=== PATIENT | male | born 1940 | race Caucasian/White ===

== ENCOUNTER 2019-05-02 10:06 | Inpatient (IN) | payer MEDICARE, OTHER ==
--- NOTE | 2019-05-02 10:41 | EDM.PDOC ---
ED HPI GENERAL MEDICAL PROBLEM - General Chief Complaint: Respiratory Problem Stated Complaint: RESPIRATORY PROBLEMS Time Seen by Provider: 05/02/19 10:27 Source of Information: Reports: Patient History Limitations: Reports: No Limitations - History of Present Illness INITIAL COMMENTS - FREE TEXT/NARRATIVE: 78-year-old male with onset of shortness of breath, nasal congestion and worsening cough on Friday afternoon, 04/30/2019. He states that he felt bad all over and with the above symptoms when he came home from [place] Friday afternoon and his symptoms of shortness of breath, cough and malaise have worsened since then. He reports he gets short of breath with any activity and even today feels short of breath when he tries to talk. He feels weak and run down. He has no pain. Pain is 0/10. He has had a cough that has been productive of some phlegm but he states that it is difficult to get the phlegm up. He has had a subjective fever. He has nausea after cough but no vomiting. No diarrhea. No dysuria or hematuria. He has had nasal congestion associated with this but no sore throat. He has been able to take liquids well but has had a decreased appetite. There are no other associated signs or symptoms. There are no other modifying factors. Onset: Other (04/30/2019) Duration: Getting Worse Location: Reports: Other (. He has generalized malaise) Quality: Reports: Other (Nonapplicable. His breathing is his major complaint and that is moderate to severe) Severity: Moderate (to severe) Improves with: Reports: Rest Worsens with: Reports: Breathing, Other (Activity. 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) - Related Data Allergies Allergy/AdvReac Type Severity Reaction Status Date / Time No Known Allergies Allergy Verified 05/02/19 11:34 Home Meds: Home Meds Aspirin 325 mg PO DAILY 03/26/16 [History] Cholecalciferol (Vitamin D3) [Vitamin D3] 5,000 unit PO DAILY 03/26/16 [History] Omeprazole 40 mg PO QAM 03/26/16 [History] Past Medical History Respiratory History: Reports: Other (See Below) Other Respiratory History: PNEUMONIA IN THE "S Gastrointestinal History: Reports: Other (See Below) Other Gastrointestinal History: SX CHRONIC EPIGASTRIC ET ABDOMINAL PAIN - Infectious Disease History Infectious Disease History: Reports: Measles - Past Surgical History GI Surgical History: Reports: EGD Musculoskeletal Surgical History: Reports: Other (See Below) (Cyst removed from left lower leg/knee area) Social & Family History - Tobacco Use Smoking Status *Q: Current Every Day Smoker - Caffeine Use Caffeine Use: Reports: Coffee - Alcohol Use Alcohol Use History: Yes Alcohol Use Frequency: Weekly (States he drinks 1-2 beers every other Friday) - Living Situation & Occupation Occupation: Retired ED ROS GENERAL - Review of Systems Review Of Systems: See Below Constitutional: Reports: Fever (Subjective), Malaise, Fatigue, Decreased Appetite HEENT: Reports: Other (Nasal congestion) Respiratory: Reports: Shortness of Breath, Wheezing, Cough Cardiovascular: Reports: Dyspnea on Exertion Endocrine: Reports: No Symptoms GI/Abdominal: Reports: Nausea (After coughing). Denies: Vomiting : Reports: No Symptoms Musculoskeletal: Reports: No Symptoms Skin: Reports: No Symptoms Neurological: Reports: No Symptoms Psychiatric: Reports: No Symptoms Hematologic/Lymphatic: Reports: No Symptoms Immunologic: Reports: No Symptoms ED EXAM, GENERAL - Physical Exam Exam: See Below Exam Limited By: No Limitations General Appearance: Alert, WD/WN, Moderate Distress (But appears better on oxygen. He is able to speak in complete sentences and gives a great history.) Eye Exam: Bilateral Eye: EOMI, Normal Inspection, PERRL Ears: Normal External Exam Ear Exam: Bilateral Ear: Auricle Normal Nose: No Blood, Nasal Drainage Throat/Mouth: Normal Inspection, Normal Oropharynx, Normal Voice, No Airway Compromise Head: Atraumatic, Normocephalic Neck: Normal Inspection, Supple, Non-Tender, Full Range of Motion Respiratory/Chest: Respiratory Distress (Some increased work of breathing), Rales (Dazes and scattered), Rhonchi (Laterally bilaterally), Wheezing, Accessory Muscle Use, Prolonged Expiration Cardiovascular: Normal Peripheral Pulses, Regular Rate, Rhythm, No Edema, No Gallop, No JVD, No Murmur Peripheral Pulses: 2+: Radial (L), Radial (R), Dorsalis Pedis (L), Dorsalis Pedis (R) GI/Abdominal: Normal Bowel Sounds, Soft, Non-Tender, No Mass Back Exam: Normal Inspection Extremities: Normal Inspection, Normal Range of Motion, Non-Tender, No Pedal Edema, Normal Capillary Refill Neurological: Alert, Oriented, CN II-XII Intact, Normal Cognition Skin Exam: Warm, Dry, Intact, Normal Color, No Rash EKG INTERPRETATION EKG Date: 05/02/19 Time: 11:12 Rhythm: NSR Rate (Beats/Min): 83 [place]: Normal P-Wave: Present QRS: RBBB ST-T: Normal QT: Normal Comparison: No Change (No change from EKG performed on 03/27/2016.) Course - Orders/Labs/Meds Orders: Active Orders 24 hr Category Date Time Status Admission Status [Patient Status] [ADT] Routine ADT 05/02/19 11:57 Ordered Cardiac Monitoring [RC] .As Directed Care 05/02/19 11:57 Ordered EKG Documentation Completion [RC] ASDIRECTED Care 05/02/19 10:42 Active RT Aerosol Therapy [RC] ASDIRECTED Care 05/02/19 10:45 Active Chest 2V [CR] Stat Exams 05/02/19 10:41 Taken CULTURE BLOOD [BC] Urgent Lab 05/02/19 11:52 Ordered CULTURE BLOOD [BC] Urgent Lab 05/02/19 11:52 Ordered Azithromycin [Zithromax] 500 mg Med 05/02/19 11:56 Ordered Sodium Chloride 0.9% [Normal Saline (AdvBag)] 250 ml IV ONETIME Sodium Chloride 0.9% [Saline Flush] Med 05/02/19 10:41 Active 10 ml FLUSH ASDIRECTED PRN Blood Culture x2 Reflex Set [OM.PC] Urgent Oth 05/02/19 11:52 Ordered Peripheral IV Insertion Adult [OM.PC] Routine Oth 05/02/19 10:41 Ordered EKG 12 Lead [EK] Routine Ther 05/02/19 10:41 Ordered Medication Orders Azithromycin 500 mg/ Sodium (Chloride) 250 mls @ 250 mls/hr IV ONETIME ONE Stop: 05/02/19 12:55 Sodium Chloride (Saline Flush) 10 ml FLUSH ASDIRECTED PRN PRN Reason: Keep Vein Open Last Admin: 05/02/19 11:05 Dose: 10 ml Labs: Laboratory Tests 05/02/19 05/02/19 05/02/19 Range/Units 10:59 10:59 10:59 WBC 10.0 (4.5-12.0) X10-3/uL RBC 4.37 (4.30-5.75) x10(6)uL Hgb 14.5 (13.5-17.8) g/dL Hct 42.8 (30.0-51.3) % MCV 98.0 H (80-96) fL MCH 33.1 (27.7-33.6) pg MCHC 33.8 (32.2-35.4) g/dL RDW 12.3 (11.5-15.5) % Plt Count 169 (125-369) X10(3)uL MPV 7.6 (7.4-10.4) fL Neut % (Auto) 76.8 (46-82) % Lymph % (Auto) 10.9 L (13-37) % Stanley % (Auto) 12.2 H (4-12) % Eos % (Auto) 0 L (1.0-5.0) % Baso % (Auto) 0 (0-2) % Neut # (Auto) 7.7 (1.6-8.3) # Lymph # (Auto) 1.1 (0.6-5.0) # Stanley # (Auto) 1.2 (0.0-1.3) # Eos # (Auto) 0.0 (0.0-0.8) # Baso # (Auto) 0.0 (0.0-0.2) # PT (8.7-11.1) INR (0.89-1.13) POC VBG pH (7.31-7.41) POC VBG pCO2 (41-51) mmHG POC VBG HCO3 (23-28) mmol/L POC VBG Total CO2 (24-29) mmol/L POC VBG Base Excess (-2-3) mmol/L Sodium 132 L (135-145) mmol/L Potassium 4.2 (3.5-5.3) mmol/L Chloride 95 L (100-110) mmol/L Carbon Dioxide 29 (21-32) mmol/L BUN 10 (7-18) mg/dL Creatinine 0.7 (0.70-1.30) mg/dL Est Cr Clr Drug Dosing TNP Estimated GFR (MDRD) > 60 (>60) BUN/Creatinine Ratio 14.3 (9-20) Glucose 100 (80-116) mg/dL Calcium 8.0 L (8.6-10.2) mg/dL Magnesium 1.4 L (1.8-2.5) mg/dL Total Bilirubin 0.4 (0.1-1.3) mg/dL AST 20 (5-25) IU/L ALT 11 L (12-36) U/L Alkaline Phosphatase 92 (56-112) IU/L Troponin I 27.7 (4.0-60.3) pg/mL C-Reactive Protein 12.1 H* (0.5-0.9) mg/dL NT-Pro-B Natriuret Pep 3702 H* (<=450) pg/mL Total Protein 6.8 (6.0-8.0) g/dL Albumin 2.8 L (3.2-4.6) g/dL Globulin 4.0 g/dL Albumin/Globulin Ratio 0.7 05/02/19 05/02/19 Range/Units 10:59 11:27 WBC (4.5-12.0) X10-3/uL RBC (4.30-5.75) x10(6)uL Hgb (13.5-17.8) g/dL Hct (30.0-51.3) % MCV (80-96) fL MCH (27.7-33.6) pg MCHC (32.2-35.4) g/dL RDW (11.5-15.5) % Plt Count (125-369) X10(3)uL MPV (7.4-10.4) fL Neut % (Auto) (46-82) % Lymph % (Auto) (13-37) % Stanley % (Auto) (4-12) % Eos % (Auto) (1.0-5.0) % Baso % (Auto) (0-2) % Neut # (Auto) (1.6-8.3) # Lymph # (Auto) (0.6-5.0) # Stanley # (Auto) (0.0-1.3) # Eos # (Auto) (0.0-0.8) # Baso # (Auto) (0.0-0.2) # PT 10.7 (8.7-11.1) INR 1.10 (0.89-1.13) POC VBG pH 7.34 (7.31-7.41) POC VBG pCO2 62.2 H (41-51) mmHG POC VBG HCO3 33.2 H (23-28) mmol/L POC VBG Total CO2 35 H (24-29) mmol/L POC VBG Base Excess 7 H (-2-3) mmol/L Sodium (135-145) mmol/L Potassium (3.5-5.3) mmol/L Chloride (100-110) mmol/L Carbon Dioxide (21-32) mmol/L BUN (7-18) mg/dL Creatinine (0.70-1.30) mg/dL Est Cr Clr Drug Dosing Estimated GFR (MDRD) (>60) BUN/Creatinine Ratio (9-20) Glucose (80-116) mg/dL Calcium (8.6-10.2) mg/dL Magnesium (1.8-2.5) mg/dL Total Bilirubin (0.1-1.3) mg/dL AST (5-25) IU/L ALT (12-36) U/L Alkaline Phosphatase (56-112) IU/L Troponin I (4.0-60.3) pg/mL C-Reactive Protein (0.5-0.9) mg/dL NT-Pro-B Natriuret Pep (<=450) pg/mL Total Protein (6.0-8.0) g/dL Albumin (3.2-4.6) g/dL Globulin g/dL Albumin/Globulin Ratio Meds: Medications Generic Name Dose Route Start Last Admin Trade Name Freq PRN Reason Stop Dose Admin Azithromycin 500 mg/ Sodium 250 mls @ 250 mls/hr 05/02/19 11:56 Chloride IV 05/02/19 12:55 ONETIME ONE Sodium Chloride 10 ml 05/02/19 10:41 05/02/19 11:05 Saline Flush FLUSH 10 ml ASDIRECTED PRN Administration Keep Vein Open Discontinued Medications Generic Name Dose Route Start Last Admin Trade Name Freq PRN Reason Stop Dose Admin Albuterol 2.5 mg 05/02/19 10:44 05/02/19 11:06 Proventil Neb Soln NEB 05/02/19 10:45 2.5 mg ONETIME ONE Administration Albuterol/Ipratropium 3 ml 05/02/19 10:44 05/02/19 11:06 Duoneb 3.0-0.5 Mg/3 Ml NEB 05/02/19 10:45 3 ml ONETIME ONE Administration Ceftriaxone Sodium 2 gm 05/02/19 11:56 Rocephin IVPUSH 05/02/19 11:57 ONETIME ONE Methylprednisolone Sodium Succinate 125 mg 05/02/19 10:44 05/02/19 11:04 Solu-Medrol IVPUSH 05/02/19 10:45 125 mg ONETIME ONE Administration - Radiology Interpretation Free Text/Narrative:: Chest x-ray shows COPD with left lower lobe infiltrate. - Re-Assessments/Exams Free Text/Narrative Re-Assessment/Exam: 05/02/19 12:00: Patient remains awake, alert and appropriate. He is more comfortable on oxygen and after the neb he is still quite wheezy and requiring supplemental oxygen. His blood gas shows evidence of hypoxic and hypercapnic respiratory failure. His chest x-ray shows evidence of pneumonia and COPD. His proBNP was elevated but his x-ray does not appear to be decompensated CHF at this time. His CRP was elevated. His other blood tests are reassuringly normal including a negative troponin. His EKG was unchanged from previous. He has acute respiratory failure with hypoxia and hypercapnia and pneumonia. He will need admission with supplemental oxygen, nebulizer treatments, IV steroids, IV antibiotics and close monitoring. He will need at least a 2 midnight hospital stay to accomplish the plan of care. I discussed this with the patient previously and he is in agreement with the plan for admission. I discussed patient's case with Dr. Ramires and he has agreed to admit the patient. I did order blood cultures 2 sets and I ordered Rocephin 2 g IV and Zithromax 500 mg IV. Departure - Departure Time of Disposition: 12:15 Disposition: Admitted As Inpatient 65 Condition: Fair (Stable) Clinical Impression: Acute respiratory failure with hypoxia and hypercapnia Left lower lobe pneumonia Qualifiers: Pneumonia type: due to unspecified organism Qualified Code(s): J18.9 - Pneumonia, unspecified organism COPD (chronic obstructive pulmonary disease) Qualifiers: COPD type: unspecified COPD Qualified Code(s): J44.9 - Chronic obstructive pulmonary disease, unspecified - Discharge Information Referrals: Terrence Mason MD [Primary Care Provider] - Forms: ED Department Discharge Sepsis Event Note - Focused Exam Date Exam was Performed: 05/02/19 Time Exam was Performed: 11:59 - My Orders Last 24 Hours: My Active Orders 05/02/19 10:41 Chest 2V [CR] Stat Sodium Chloride 0.9% [Saline Flush] 10 ml FLUSH ASDIRECTED PRN Peripheral IV Insertion Adult [OM.PC] Routine EKG 12 Lead [EK] Routine 05/02/19 10:42 EKG Documentation Completion [RC] ASDIRECTED 05/02/19 10:45 RT Aerosol Therapy [RC] ASDIRECTED 05/02/19 11:52 CULTURE BLOOD [BC] Urgent CULTURE BLOOD [BC] Urgent Blood Culture x2 Reflex Set [OM.PC] Urgent 05/02/19 11:56 Azithromycin [Zithromax] 500 mg Sodium Chloride 0.9% [Normal Saline (AdvBag)] 250 ml IV ONETIME 05/02/19 11:57 Admission Status [Patient Status] [ADT] Routine Cardiac Monitoring [RC] .As Directed - Assessment/Plan Last 24 Hours: My Active Orders 05/02/19 10:41 Chest 2V [CR] Stat Sodium Chloride 0.9% [Saline Flush] 10 ml FLUSH ASDIRECTED PRN Peripheral IV Insertion Adult [OM.PC] Routine EKG 12 Lead [EK] Routine 05/02/19 10:42 EKG Documentation Completion [RC] ASDIRECTED 05/02/19 10:45 RT Aerosol Therapy [RC] ASDIRECTED 05/02/19 11:52 CULTURE BLOOD [BC] Urgent CULTURE BLOOD [BC] Urgent Blood Culture x2 Reflex Set [OM.PC] Urgent 05/02/19 11:56 Azithromycin [Zithromax] 500 mg Sodium Chloride 0.9% [Normal Saline (AdvBag)] 250 ml IV ONETIME 05/02/19 11:57 Admission Status [Patient Status] [ADT] Routine Cardiac Monitoring [RC] .As Directed
[2019-05-02] MEDS ORDERED: Albuterol 0.083% 2.5 MG/3 ML Neb Soln NEB ONE (10:44)
[2019-05-02] MEDS ORDERED: methylPREDNISolone Sodium Succinate 125 MG/2 ML SDV IVPUSH ONE (10:44)
[2019-05-02] MEDS ORDERED: Albuterol/Ipratropium 3.0-0.5 MG/3 ML Neb Soln NEB ONE (10:44)
[2019-05-02] MEDS: Sodium Chloride 0.9% 10 ML Syringe FLUSH PRN ×4 (11:05→20:24)
[2019-05-02] MEDS ORDERED: cefTRIAXone 2 GM Vial IVPUSH ONE (11:56)
[2019-05-02] MEDS ORDERED: Azithromycin 500 MG in Sodium Chloride 0.9% 250 ML IV ONE (11:56)
--- NOTE | 2019-05-02 17:26 | PCM.HP.2 ---
H&P History of Present Illness - General Date of Service: 05/02/19 Admit Problem/Dx: Admission Diagnosis/Problem Admission Diagnosis/Problem Respiratory failure with hypoxia and hypercapnia Source of Information: Patient, Old Records History Limitations: Reports: No Limitations - History of Present Illness Initial Comments - Free Text/Narative: Steve is a 78-year-old smoker came in with shortness of breath cough and wheezing since Friday. He was well previously with exception of an episode of fever and chills last week. He is generally not seen the physician and was last seen in the clinic for us dysphagia reflux disease in 2015. She had pneumonia in the . He denies chest pain DENIES ANY PAIN WHEN ASKED AT PRESENT TIME Pain Score (Numeric/FACES): 0 - Related Data Allergies/Adverse Reactions: Allergies Allergy/AdvReac Type Severity Reaction Status Date / Time No Known Allergies Allergy Verified 05/02/19 11:34 Home Medications: Home Meds Aspirin 325 mg PO DAILY 03/26/16 [History] Cholecalciferol (Vitamin D3) [Vitamin D3] 5,000 unit PO DAILY 03/26/16 [History] Omeprazole 40 mg PO QAM 03/26/16 [History] Past Medical History HEENT History: Reports: Impaired Vision Cardiovascular History: Reports: SOB on Exertion Respiratory History: Reports: SOB, Other (See Below) Other Respiratory History: PNEUMONIA IN THE Gastrointestinal History: Reports: Other (See Below) Other Gastrointestinal History: SX CHRONIC EPIGASTRIC ET ABDOMINAL PAIN Other Musculoskeletal History: CYST REMOVED FROM LEFT OUTER KNEE - Infectious Disease History Infectious Disease History: Reports: Chicken Pox, Measles, Shingles - Past Surgical History HEENT Surgical History: Reports: Oral Surgery Cardiovascular Surgical History: Reports: None Respiratory Surgical History: Reports: None GI Surgical History: Reports: EGD Musculoskeletal Surgical History: Reports: Other (See Below) Social & Family History - Family History Family Medical History: Noncontributory - Tobacco Use Smoking Status *Q: Current Every Day Smoker Years of Tobacco use: 50 Packs/Tins Daily: 1 Used Tobacco, but Quit: No Second Hand Smoke Exposure: Yes - Caffeine Use Caffeine Use: Reports: Coffee - Alcohol Use Days Per Week of Alcohol Use: 1 Number of Drinks Per Day: 2 Total Drinks Per Week: 2 - Recreational Drug Use Recreational Drug Use: No - Living Situation & Occupation Occupation: Retired H&P Review of Systems - Review of Systems: Review Of Systems: Comprehensive ROS is negative, except as noted in HPI. Exam - Exam Exam: See Below - Vital Signs Vital Signs: Last Vital Signs Temp 99.2 F 05/02/19 13:20 Pulse 87 05/02/19 13:20 Resp 24 H 05/02/19 13:20 BP 104/51 L 05/02/19 13:20 Pulse Ox 80 L 05/02/19 13:20 Weight: 60.101 kg - Exam Quality Assessment: Supplemental Oxygen General: Alert, Oriented, 4 HEENT: PERRLA, Hearing Intact, Mucosa Moist & [place], Nares Patent, Normal Nasal Septum, Posterior Pharynx Clear, Conjunctiva Clear, EOMI, EACs Clear, TMs Clear Neck: Supple, Trachea Midline, 2 Lungs: Decreased Breath Sounds, Wheezing Cardiovascular: Regular Rate, Regular Rhythm GI/Abdominal Exam: Normal Bowel Sounds, Soft, Non-Tender, No Organomegaly, No Distention, No Abnormal Bruit, No Mass, Pelvis Stable (Male) Exam: Deferred Rectal (Males) Exam: Deferred Back Exam: Normal Inspection, Full Range of Motion, NT Extremities: Normal Inspection, Normal Range of Motion, Non-Tender, No Pedal Edema, Normal Capillary Refill Skin: Warm, Dry, Intact Neurological: Cranial Nerves Intact, Reflexes Equal Bilateral Neuro Extensive - Mental Status: Alert, Oriented x3, Normal Mood/Affect, Normal Cognition Neuro Extensive - Motor, Sensory, Reflexes: CN II-XII Intact, Normal Gait, Normal Reflexes Psychiatric: Alert, Normal Affect, Normal Mood - Patient Data Lab Results Last 24 hrs: Laboratory Results - last 24 hr 05/02/19 05/02/19 05/02/19 Range/Units 10:59 10:59 10:59 WBC 10.0 (4.5-12.0) X10-3/uL RBC 4.37 (4.30-5.75) x10(6)uL Hgb 14.5 (13.5-17.8) g/dL Hct 42.8 (30.0-51.3) % MCV 98.0 H (80-96) fL MCH 33.1 (27.7-33.6) pg MCHC 33.8 (32.2-35.4) g/dL RDW 12.3 (11.5-15.5) % Plt Count 169 (125-369) X10(3)uL MPV 7.6 (7.4-10.4) fL Neut % (Auto) 76.8 (46-82) % Lymph % (Auto) 10.9 L (13-37) % Lewis % (Auto) 12.2 H (4-12) % Eos % (Auto) 0 L (1.0-5.0) % Baso % (Auto) 0 (0-2) % Neut # (Auto) 7.7 (1.6-8.3) # Lymph # (Auto) 1.1 (0.6-5.0) # Lewis # (Auto) 1.2 (0.0-1.3) # Eos # (Auto) 0.0 (0.0-0.8) # Baso # (Auto) 0.0 (0.0-0.2) # PT (8.7-11.1) INR (0.89-1.13) POC VBG pH (7.31-7.41) POC VBG pCO2 (41-51) mmHG POC VBG HCO3 (23-28) mmol/L POC VBG Total CO2 (24-29) mmol/L POC VBG Base Excess (-2-3) mmol/L Sodium 132 L (135-145) mmol/L Potassium 4.2 (3.5-5.3) mmol/L Chloride 95 L (100-110) mmol/L Carbon Dioxide 29 (21-32) mmol/L BUN 10 (7-18) mg/dL Creatinine 0.7 (0.70-1.30) mg/dL Est Cr Clr Drug Dosing TNP Estimated GFR (MDRD) > 60 (>60) BUN/Creatinine Ratio 14.3 (9-20) Glucose 100 (80-116) mg/dL Calcium 8.0 L (8.6-10.2) mg/dL Magnesium 1.4 L (1.8-2.5) mg/dL Total Bilirubin 0.4 (0.1-1.3) mg/dL AST 20 (5-25) IU/L ALT 11 L (12-36) U/L Alkaline Phosphatase 92 (56-112) IU/L Troponin I 27.7 (4.0-60.3) pg/mL C-Reactive Protein 12.1 H* (0.5-0.9) mg/dL NT-Pro-B Natriuret Pep 3702 H* (<=450) pg/mL Total Protein 6.8 (6.0-8.0) g/dL Albumin 2.8 L (3.2-4.6) g/dL Globulin 4.0 g/dL Albumin/Globulin Ratio 0.7 05/02/19 05/02/19 Range/Units 10:59 11:27 WBC (4.5-12.0) X10-3/uL RBC (4.30-5.75) x10(6)uL Hgb (13.5-17.8) g/dL Hct (30.0-51.3) % MCV (80-96) fL MCH (27.7-33.6) pg MCHC (32.2-35.4) g/dL RDW (11.5-15.5) % Plt Count (125-369) X10(3)uL MPV (7.4-10.4) fL Neut % (Auto) (46-82) % Lymph % (Auto) (13-37) % Lewis % (Auto) (4-12) % Eos % (Auto) (1.0-5.0) % Baso % (Auto) (0-2) % Neut # (Auto) (1.6-8.3) # Lymph # (Auto) (0.6-5.0) # Lewis # (Auto) (0.0-1.3) # Eos # (Auto) (0.0-0.8) # Baso # (Auto) (0.0-0.2) # PT 10.7 (8.7-11.1) INR 1.10 (0.89-1.13) POC VBG pH 7.34 (7.31-7.41) POC VBG pCO2 62.2 H (41-51) mmHG POC VBG HCO3 33.2 H (23-28) mmol/L POC VBG Total CO2 35 H (24-29) mmol/L POC VBG Base Excess 7 H (-2-3) mmol/L Sodium (135-145) mmol/L Potassium (3.5-5.3) mmol/L Chloride (100-110) mmol/L Carbon Dioxide (21-32) mmol/L BUN (7-18) mg/dL Creatinine (0.70-1.30) mg/dL Est Cr Clr Drug Dosing Estimated GFR (MDRD) (>60) BUN/Creatinine Ratio (9-20) Glucose (80-116) mg/dL Calcium (8.6-10.2) mg/dL Magnesium (1.8-2.5) mg/dL Total Bilirubin (0.1-1.3) mg/dL AST (5-25) IU/L ALT (12-36) U/L Alkaline Phosphatase (56-112) IU/L Troponin I (4.0-60.3) pg/mL C-Reactive Protein (0.5-0.9) mg/dL NT-Pro-B Natriuret Pep (<=450) pg/mL Total Protein (6.0-8.0) g/dL Albumin (3.2-4.6) g/dL Globulin g/dL Albumin/Globulin Ratio Result Diagrams: 05/02/19 10:59 05/02/19 10:59 Dhruv Results Last 24 hrs: Microbiology 05/02/19 11:00 Influenza Type A Antigen Screen - Final Nasopharyngeal Swab NEGATIVE INFLUENZA A VIRUS AG REFERENCE RANGE: NEGATIVE Influenza Type B Antigen Screen - Final NEGATIVE INFLUENZA B VIRUS AG REFERENCE RANGE: NEGATIVE Sepsis Event Note - Evaluation Sepsis Screening Result: No Definite Risk - Focused Exam Vital Signs: Vital Signs Temp Pulse Resp BP Pulse Ox 05/02/19 13:20 99.2 F 87 24 H 104/51 L 80 L Date Exam was Performed: 05/02/19 Time Exam was Performed: 17:24 - Problem List (1) COPD (chronic obstructive pulmonary disease) SNOMED Code(s): 16065343 ICD Code: J44.9 - CHRONIC OBSTRUCTIVE PULMONARY DISEASE, UNSPECIFIED Status : Acute Current Visit: Yes Qualifiers: COPD type: unspecified COPD Qualified Code(s): J44.9 - Chronic obstructive pulmonary disease, unspecified (2) Left lower lobe pneumonia SNOMED Code(s): 282393990 ICD Code: J18.9 - PNEUMONIA, UNSPECIFIED ORGANISM Status: Acute Current Visit: Yes Qualifiers: Pneumonia type: due to unspecified organism Qualified Code(s): J18.9 - Pneumonia, unspecified organism (3) Gastroduodenitis SNOMED Code(s): 480079884 ICD Code: K29.90 - GASTRODUODENITIS, UNSPECIFIED, WITHOUT BLEEDING Status: Acute Current Visit: No (4) Tobacco abuse SNOMED Code(s): 440654444 ICD Code: Z72.0 - TOBACCO USE Status: Acute Current Visit: Yes Problem List Initiated/Reviewed/Updated: Yes Orders Last 24hrs: Active Orders 24 hr Category Date Time Status Admission Status [Patient Status] [ADT] Routine ADT 05/02/19 11:57 Active Cardiac Monitoring [RC] 08,16,00 Care 05/02/19 11:57 Active RT Aerosol Therapy [RC] ASDIRECTED Care 05/02/19 10:45 Active Regular Diet [DIET] Diet 05/02/19 Lunch Active Chest 2V [CR] Stat Exams 05/02/19 10:41 Taken BASIC METABOLIC PANEL,BMP [CHEM] AM Lab 05/03/19 05:11 Ordered CBC WITH AUTO DIFF [HEME] AM Lab 05/03/19 05:11 Ordered CULTURE BLOOD [BC] Urgent Lab 05/02/19 13:17 Received CULTURE BLOOD [BC] Urgent Lab 05/02/19 13:22 Received Levofloxacin/Dextrose 5%-Water [Levaquin in D5W 500 MG/ Med 05/02/19 17:30 Ordered 100 ML] 500 mg Premix Bag 1 bag IV Q24H Sodium Chloride 0.9% [Saline Flush] Med 05/02/19 10:41 Active 10 ml FLUSH ASDIRECTED PRN methylPREDNISolone Sod Succ [Solu-MEDROL] Med 05/02/19 17:30 Ordered 125 mg IVPUSH Q8H Blood Culture x2 Reflex Set [OM.PC] Urgent Oth 05/02/19 11:52 Ordered Peripheral IV Insertion Adult [OM.PC] Routine Oth 05/02/19 10:41 Ordered EKG 12 Lead [EK] Routine Ther 05/02/19 10:41 Ordered Medication Orders Levofloxacin/Dextrose 500 mg/ (Premix) 100 mls @ 100 mls/hr IV Q24H BERNABE Methylprednisolone Sodium Succinate (Solu-Medrol) 125 mg IVPUSH Q8H BERNABE Sodium Chloride (Saline Flush) 10 ml FLUSH ASDIRECTED PRN PRN Reason: Keep Vein Open Last Admin: 05/02/19 13:40 Dose: 10 ml Admin: 05/02/19 11:05 Dose: 10 ml Assessment/Plan Comment:: I will discontinue telemetry, continue oxygen supplementation by nasal cannula. I will repeat some labs the morning treating with Solu-Medrol, SVNs, and Levaquin. I anticipate a discharge in 1-2 days.
[2019-05-02] MEDS: Levofloxacin/Dextrose 5%-Water 500 MG in Premix Bag 1 BAG IV SCH (18:40)
[2019-05-02] MEDS: methylPREDNISolone Sodium Succinate 125 MG/2 ML SDV IVPUSH SCH (20:23)
[2019-05-03] MEDS: methylPREDNISolone Sodium Succinate 125 MG/2 ML SDV IVPUSH SCH ×3 (04:13→20:37)
[2019-05-03] MEDS: Sodium Chloride 0.9% 10 ML Syringe FLUSH PRN ×3 (04:13→17:13)
--- NOTE | 2019-05-03 08:46 | PCM.PN ---
- General Info Date of Service: 05/03/19 Subjective Update: Feels better Functional Status: Reports: Pain Controlled, Tolerating Diet - Review of Systems General: Reports: No Symptoms Pulmonary: Reports: Shortness of Breath, Cough, Wheezing Cardiovascular: Reports: No Symptoms Gastrointestinal: Reports: No Symptoms - Patient Data Vitals - Most Recent: Last Vital Signs Temp 97.7 F 05/02/19 23:26 Pulse 70 05/02/19 23:26 Resp 18 05/02/19 23:26 BP 116/56 L 05/02/19 23:26 Pulse Ox 94 L 05/02/19 23:26 Weight - Most Recent: 60.101 kg I&O - Last 24 Hours: Intake & Output 05/02/19 05/03/19 05/03/19 22:59 06:59 14:59 Intake Total 100 Balance 100 Lab Results Last 24 Hours: Laboratory Results - last 24 hr 05/02/19 05/02/19 05/02/19 Range/Units 10:59 10:59 10:59 WBC 10.0 (4.5-12.0) X10-3/uL RBC 4.37 (4.30-5.75) x10(6)uL Hgb 14.5 (13.5-17.8) g/dL Hct 42.8 (30.0-51.3) % MCV 98.0 H (80-96) fL MCH 33.1 (27.7-33.6) pg MCHC 33.8 (32.2-35.4) g/dL RDW 12.3 (11.5-15.5) % Plt Count 169 (125-369) X10(3)uL MPV 7.6 (7.4-10.4) fL Neut % (Auto) 76.8 (46-82) % Lymph % (Auto) 10.9 L (13-37) % [place] % (Auto) 12.2 H (4-12) % Eos % (Auto) 0 L (1.0-5.0) % Baso % (Auto) 0 (0-2) % Neut # (Auto) 7.7 (1.6-8.3) # Lymph # (Auto) 1.1 (0.6-5.0) # [place] # (Auto) 1.2 (0.0-1.3) # Eos # (Auto) 0.0 (0.0-0.8) # Baso # (Auto) 0.0 (0.0-0.2) # Add Manual Diff Neutrophils % (Manual) (46-82) % Band Neutrophils % (0-6) % Lymphocytes % (Manual) (13-37) % PT (8.7-11.1) INR (0.89-1.13) POC VBG pH (7.31-7.41) POC VBG pCO2 (41-51) mmHG POC VBG HCO3 (23-28) mmol/L POC VBG Total CO2 (24-29) mmol/L POC VBG Base Excess (-2-3) mmol/L Sodium 132 L (135-145) mmol/L Potassium 4.2 (3.5-5.3) mmol/L Chloride 95 L (100-110) mmol/L Carbon Dioxide 29 (21-32) mmol/L BUN 10 (7-18) mg/dL Creatinine 0.7 (0.70-1.30) mg/dL Est Cr Clr Drug Dosing TNP Estimated GFR (MDRD) > 60 (>60) BUN/Creatinine Ratio 14.3 (9-20) Glucose 100 (80-116) mg/dL Calcium 8.0 L (8.6-10.2) mg/dL Magnesium 1.4 L (1.8-2.5) mg/dL Total Bilirubin 0.4 (0.1-1.3) mg/dL AST 20 (5-25) IU/L ALT 11 L (12-36) U/L Alkaline Phosphatase 92 (56-112) IU/L Troponin I 27.7 (4.0-60.3) pg/mL C-Reactive Protein 12.1 H* (0.5-0.9) mg/dL NT-Pro-B Natriuret Pep 3702 H* (<=450) pg/mL Total Protein 6.8 (6.0-8.0) g/dL Albumin 2.8 L (3.2-4.6) g/dL Globulin 4.0 g/dL Albumin/Globulin Ratio 0.7 05/02/19 05/02/19 05/03/19 Range/Units 10:59 11:27 07:10 WBC 9.0 (4.5-12.0) X10-3/uL RBC 4.33 (4.30-5.75) x10(6)uL Hgb 14.2 (13.5-17.8) g/dL Hct 42.2 (30.0-51.3) % MCV 97.3 H (80-96) fL MCH 32.9 (27.7-33.6) pg MCHC 33.8 (32.2-35.4) g/dL RDW 12.4 (11.5-15.5) % Plt Count 141 (125-369) X10(3)uL MPV 7.7 (7.4-10.4) fL Neut % (Auto) (46-82) % Lymph % (Auto) (13-37) % [place] % (Auto) (4-12) % Eos % (Auto) (1.0-5.0) % Baso % (Auto) (0-2) % Neut # (Auto) (1.6-8.3) # Lymph # (Auto) (0.6-5.0) # [place] # (Auto) (0.0-1.3) # Eos # (Auto) (0.0-0.8) # Baso # (Auto) (0.0-0.2) # Add Manual Diff Yes Neutrophils % (Manual) 90 H (46-82) % Band Neutrophils % 7 H (0-6) % Lymphocytes % (Manual) 3 L (13-37) % PT 10.7 (8.7-11.1) INR 1.10 (0.89-1.13) POC VBG pH 7.34 (7.31-7.41) POC VBG pCO2 62.2 H (41-51) mmHG POC VBG HCO3 33.2 H (23-28) mmol/L POC VBG Total CO2 35 H (24-29) mmol/L POC VBG Base Excess 7 H (-2-3) mmol/L Sodium (135-145) mmol/L Potassium (3.5-5.3) mmol/L Chloride (100-110) mmol/L Carbon Dioxide (21-32) mmol/L BUN (7-18) mg/dL Creatinine (0.70-1.30) mg/dL Est Cr Clr Drug Dosing Estimated GFR (MDRD) (>60) BUN/Creatinine Ratio (9-20) Glucose (80-116) mg/dL Calcium (8.6-10.2) mg/dL Magnesium (1.8-2.5) mg/dL Total Bilirubin (0.1-1.3) mg/dL AST (5-25) IU/L ALT (12-36) U/L Alkaline Phosphatase (56-112) IU/L Troponin I (4.0-60.3) pg/mL C-Reactive Protein (0.5-0.9) mg/dL NT-Pro-B Natriuret Pep (<=450) pg/mL Total Protein (6.0-8.0) g/dL Albumin (3.2-4.6) g/dL Globulin g/dL Albumin/Globulin Ratio 05/03/19 Range/Units 07:10 WBC (4.5-12.0) X10-3/uL RBC (4.30-5.75) x10(6)uL Hgb (13.5-17.8) g/dL Hct (30.0-51.3) % MCV (80-96) fL MCH (27.7-33.6) pg MCHC (32.2-35.4) g/dL RDW (11.5-15.5) % Plt Count (125-369) X10(3)uL MPV (7.4-10.4) fL Neut % (Auto) (46-82) % Lymph % (Auto) (13-37) % [place] % (Auto) (4-12) % Eos % (Auto) (1.0-5.0) % Baso % (Auto) (0-2) % Neut # (Auto) (1.6-8.3) # Lymph # (Auto) (0.6-5.0) # [place] # (Auto) (0.0-1.3) # Eos # (Auto) (0.0-0.8) # Baso # (Auto) (0.0-0.2) # Add Manual Diff Neutrophils % (Manual) (46-82) % Band Neutrophils % (0-6) % Lymphocytes % (Manual) (13-37) % PT (8.7-11.1) INR (0.89-1.13) POC VBG pH (7.31-7.41) POC VBG pCO2 (41-51) mmHG POC VBG HCO3 (23-28) mmol/L POC VBG Total CO2 (24-29) mmol/L POC VBG Base Excess (-2-3) mmol/L Sodium 132 L (135-145) mmol/L Potassium 4.5 (3.5-5.3) mmol/L Chloride 94 L (100-110) mmol/L Carbon Dioxide 32 (21-32) mmol/L BUN 10 (7-18) mg/dL Creatinine 0.6 L (0.70-1.30) mg/dL Est Cr Clr Drug Dosing 84.86 Estimated GFR (MDRD) > 60 (>60) BUN/Creatinine Ratio 16.7 (9-20) Glucose 135 H (80-116) mg/dL Calcium 8.6 (8.6-10.2) mg/dL Magnesium (1.8-2.5) mg/dL Total Bilirubin (0.1-1.3) mg/dL AST (5-25) IU/L ALT (12-36) U/L Alkaline Phosphatase (56-112) IU/L Troponin I (4.0-60.3) pg/mL C-Reactive Protein (0.5-0.9) mg/dL NT-Pro-B Natriuret Pep (<=450) pg/mL Total Protein (6.0-8.0) g/dL Albumin (3.2-4.6) g/dL Globulin g/dL Albumin/Globulin Ratio Dhruv Results Last 24 Hours: Microbiology 05/02/19 11:00 Influenza Type A Antigen Screen - Final Nasopharyngeal Swab NEGATIVE INFLUENZA A VIRUS AG REFERENCE RANGE: NEGATIVE Influenza Type B Antigen Screen - Final NEGATIVE INFLUENZA B VIRUS AG REFERENCE RANGE: NEGATIVE Med Orders - Current: Current Medications Levofloxacin/Dextrose 500 mg/ (Premix) 100 mls @ 100 mls/hr IV Q24H BERNABE Last Admin: 05/02/19 18:40 Dose: 100 mls/hr Methylprednisolone Sodium Succinate (Solu-Medrol) 125 mg IVPUSH Q8H BERNABE Last Admin: 05/03/19 04:13 Dose: 125 mg Sodium Chloride (Saline Flush) 10 ml FLUSH ASDIRECTED PRN PRN Reason: Keep Vein Open Last Admin: 05/03/19 04:13 Dose: 10 ml Discontinued Medications Albuterol (Proventil Neb Soln) 2.5 mg NEB ONETIME ONE Stop: 05/02/19 10:45 Last Admin: 05/02/19 11:06 Dose: 2.5 mg Albuterol/Ipratropium (Duoneb 3.0-0.5 Mg/3 Ml) 3 ml NEB ONETIME ONE Stop: 05/02/19 10:45 Last Admin: 05/02/19 11:06 Dose: 3 ml Ceftriaxone Sodium (Rocephin) 2 gm IVPUSH ONETIME ONE Stop: 05/02/19 11:57 Last Admin: 05/02/19 12:27 Dose: 2 gm Azithromycin 500 mg/ Sodium (Chloride) 250 mls @ 250 mls/hr IV ONETIME ONE Stop: 05/02/19 12:55 Last Admin: 05/02/19 12:30 Dose: 250 mls/hr Methylprednisolone Sodium Succinate (Solu-Medrol) 125 mg IVPUSH ONETIME ONE Stop: 05/02/19 10:45 Last Admin: 05/02/19 11:04 Dose: 125 mg - Exam Quality Assessment: Supplemental Oxygen General: Alert, Oriented, Cooperative Neck: Supple Lungs: Decreased Breath Sounds, Rhonchi Cardiovascular: Regular Rate, Regular Rhythm Sepsis Event Note - Evaluation Sepsis Screening Result: No Definite Risk - Focused Exam Vital Signs: Vital Signs Temp Pulse Resp BP Pulse Ox 05/02/19 23:26 97.7 F 70 18 116/56 L 94 L Date Exam was Performed: 05/03/19 Time Exam was Performed: 08:45 - Problem List & Annotations (1) COPD (chronic obstructive pulmonary disease) SNOMED Code(s): 88250065 Code(s): J44.9 - CHRONIC OBSTRUCTIVE PULMONARY DISEASE, UNSPECIFIED Status : Acute Current Visit: Yes Qualifiers: COPD type: unspecified COPD Qualified Code(s): J44.9 - Chronic obstructive pulmonary disease, unspecified (2) Left lower lobe pneumonia SNOMED Code(s): 690218898 Code(s): J18.9 - PNEUMONIA, UNSPECIFIED ORGANISM Status: Acute Current Visit: Yes Qualifiers: Pneumonia type: due to unspecified organism Qualified Code(s): J18.9 - Pneumonia, unspecified organism (3) Gastroduodenitis SNOMED Code(s): 784368232 Code(s): K29.90 - GASTRODUODENITIS, UNSPECIFIED, WITHOUT BLEEDING Status: Acute Current Visit: No (4) Tobacco abuse SNOMED Code(s): 253890005 Code(s): Z72.0 - TOBACCO USE Status: Acute Current Visit: Yes - Problem List Review Problem List Initiated/Reviewed/Updated: Yes - My Orders Last 24 Hours: My Active Orders 05/02/19 17:30 Levofloxacin/Dextrose 5%-Water [Levaquin in D5W 500 MG/100 ML] 500 mg Premix Bag 1 bag IV Q24H 05/02/19 17:55 Retail Helper Discontinue [Cardiac Monitoring Discontinue] [RC] Click to Edit 05/02/19 19:28 Code Status [Resuscitation Status] Routine 05/02/19 20:00 methylPREDNISolone Sod Succ [Solu-MEDROL] 125 mg IVPUSH Q8H 05/02/19 Lunch Regular Diet [DIET] 05/04/19 05:11 BASIC METABOLIC PANEL,BMP [CHEM] AM CBC WITH AUTO DIFF [HEME] AM CRP [C-REACTIVE PROTEIN] [CHEM] AM - Plan Plan:: Continue Leavquin. Possible DC in AM. Repeat labs then
[2019-05-03] MEDS: Levofloxacin/Dextrose 5%-Water 500 MG in Premix Bag 1 BAG IV SCH (17:13)
[2019-05-04] MEDS: methylPREDNISolone Sodium Succinate 125 MG/2 ML SDV IVPUSH SCH ×2 (03:57→11:52)
[2019-05-04] MEDS: Sodium Chloride 0.9% 10 ML Syringe FLUSH PRN ×2 (03:57→11:57)
--- NOTE | 2019-05-04 09:41 | DISCH ---
DISCHARGE DATE: 05/04/2019 REASON FOR ADMISSION: 1. COPD exacerbation. 2. Pneumonia. 3. Tobacco abuse. HISTORY OF PRESENT ILLNESS: This is a 78-year-old, who presented to the ER with cough, wheezing, shortness of breath for a week. An x-ray showed features of COPD and also pneumonia. He was treated with SVNs, Levaquin, and prednisone. He still needs oxygenation today at the day of discharge, 2 L, continually due to the COPD. I will discharge him home on home O2 and nebulized therapy of albuterol and Atrovent, Spiriva, and Symbicort. I will also finish Levaquin 500 p.o. daily to complete 10 days. Tobacco abuse cessation was discussed at length. The patient will see PCP, Dr. Mason, in 1 week. I spent more than 35 minutes in the discharge of the patient. /[id number] RAFAEL/KRISTOFER
[2019-05-04 17:02] VITALS: BP 130/70; PULSE 85
[2019-05-04] MEDS: Levofloxacin/Dextrose 5%-Water 500 MG in Premix Bag 1 BAG IV SCH (18:44)
== END 2019-05-04 15:50 | disposition home or self-care (01) | DRG 190 ==
LOC: FB.ED 10:06 → FB.MS 11:57
PROVIDERS: ADMIT Family Medicine; ATTEND Family Medicine
DX: J44.0 Chronic obstructive pulmonary disease with (acute) lower respiratory infection (principal); J44.9 Chronic obstructive pulmonary disease, unspecified; J96.02 Acute respiratory failure with hypercapnia; J96.01 Acute respiratory failure with hypoxia; J18.9 Pneumonia, unspecified organism; G89.29 Other chronic pain; R10.13 Epigastric pain; F17.200 Nicotine dependence, unspecified, uncomplicated; J44.1 Chronic obstructive pulmonary disease with (acute) exacerbation; K29.90 Gastroduodenitis, unspecified, without bleeding; F17.210 Nicotine dependence, cigarettes, uncomplicated; H54.7 Unspecified visual loss; Z87.01 Personal history of pneumonia (recurrent); Z79.82 Long term (current) use of aspirin; Z79.899 Other long term (current) drug therapy; Z98.890 Other specified postprocedural states
CPT/HCPCS: 36415; 71046; 80053; 82803; 83735; 83880; 84484; 85025; 85610; 86140; 87804 ×2; 93005; 94640; J2930; 80048; 87040; 94760; J0456; J0696; J1956; J7050; J7620-GY

== ENCOUNTER 2019-11-14 16:40 | Emergency (ER) | payer MEDICARE, OTHER ==
--- NOTE | 2019-11-14 18:19 | EDM.PDOC ---
ED HPI GENERAL MEDICAL PROBLEM - General Stated Complaint: SENT FROM CLINIC Time Seen by Provider: 11/14/19 16:40 Source of Information: Reports: Patient History Limitations: Reports: No Limitations - History of Present Illness INITIAL COMMENTS - FREE TEXT/NARRATIVE: Patient presented to the clinic because of a clogged ward. the urine in the ward was brown with some clotted blood. Denies any fever,chills,N/V or flank pain. Bladder Pain Score (Numeric/FACES): 2 - Related Data Allergies Allergy/AdvReac Type Severity Reaction Status Date / Time No Known Allergies Allergy Verified 05/02/19 11:34 Home Meds: Home Meds Aspirin 325 mg PO DAILY 03/26/16 [History] Cholecalciferol (Vitamin D3) [Vitamin D3] 5,000 unit PO DAILY 03/26/16 [History] Omeprazole 40 mg PO QAM 03/26/16 [History] Acetaminophen/HYDROcodone [[place] 325-5 MG] 1 - 2 tab PO Q6H PRN 11/14/19 [History] Budesonide/Formoterol [Symbicort 160-4.5 MCG] 1 puff INH BID PRN 11/14/19 [History] Tiotropium [Spiriva] 1 puff INH DAILY PRN 11/14/19 [History] cephALEXin [Cephalexin] 500 mg BID 11/14/19 [History] Past Medical History HEENT History: Reports: Impaired Vision Cardiovascular History: Reports: SOB on Exertion Respiratory History: Reports: SOB, Other (See Below) Other Respiratory History: PNEUMONIA IN THE 90"S Gastrointestinal History: Reports: Other (See Below) Other Gastrointestinal History: SX CHRONIC EPIGASTRIC ET ABDOMINAL PAIN Other Musculoskeletal History: CYST REMOVED FROM LEFT OUTER KNEE - Infectious Disease History Infectious Disease History: Reports: Chicken Pox, Measles, Shingles - Past Surgical History HEENT Surgical History: Reports: Oral Surgery Cardiovascular Surgical History: Reports: None Respiratory Surgical History: Reports: None GI Surgical History: Reports: EGD Musculoskeletal Surgical History: Reports: Other (See Below) Social & Family History - Family History Family Medical History: Noncontributory - Caffeine Use Caffeine Use: Reports: Coffee - Living Situation & Occupation Occupation: Retired ED ROS GENERAL - Review of Systems Review Of Systems: See Below Constitutional: Reports: No Symptoms HEENT: Reports: No Symptoms Respiratory: Reports: No Symptoms Cardiovascular: Reports: No Symptoms Endocrine: Reports: No Symptoms GI/Abdominal: Reports: No Symptoms : Reports: Other (obstructed ward) Musculoskeletal: Reports: No Symptoms Skin: Reports: No Symptoms ED EXAM, RENAL/ - Physical Exam Exam: See Below Exam Limited By: No Limitations General Appearance: Alert, No Apparent Distress Ears: Normal External Exam Nose: Normal Inspection, Normal Mucosa Throat/Mouth: Normal Inspection, Normal Lips Head: Atraumatic, Normocephalic Neck: Normal Inspection, Supple, Non-Tender Respiratory/Chest: No Respiratory Distress, Lungs Clear Cardiovascular: Normal Peripheral Pulses, Regular Rate, Rhythm, No Edema GI/Abdominal: Normal Bowel Sounds, Soft, Non-Tender, No Organomegaly Back Exam: Normal Inspection, Full Range of Motion Extremities: Normal Inspection, Normal Range of Motion, Non-Tender Neurological: Alert, Oriented, CN II-XII Intact, Normal Cognition, Normal Gait Course - Vital Signs Last Recorded V/S: Last Vital Signs Temp 36.6 C 11/14/19 16:40 Pulse 82 11/14/19 18:58 Resp 16 11/14/19 16:40 BP 151/82 H 11/14/19 18:58 Pulse Ox 94 L 11/14/19 16:40 obstructed fley was irrigated and is free flowing again. Departure - Departure Time of Disposition: 19:35 Disposition: Home, Self-Care 01 Condition: Good Clinical Impression: Obstructed Ward catheter - Discharge Information Instructions: Indwelling Urinary Catheter Care, Adult, [id number] Referrals: Terrence Mason MD [Primary Care Provider] - Forms: ED Department Discharge Additional Instructions: Please read discharge instructions on Ward Cath obstructions Increase oral fluids Keep your appointment on to see the Urologist Sepsis Event Note (ED) - Focused Exam Vital Signs: Vital Signs Temp Pulse Resp BP Pulse Ox 11/14/19 18:58 82 151/82 H 11/14/19 16:40 36.6 C 82 16 151/82 H 94 L
[2019-11-14 19:57] VITALS: BP 151/82; PULSE 82
== END 2019-11-14 19:15 | disposition home or self-care (01) ==
LOC: FB.ED 16:40
DX: T83.098A Other mechanical complication of other urinary catheter, initial encounter (principal); Z79.82 Long term (current) use of aspirin; Z79.899 Other long term (current) drug therapy
CPT/HCPCS: 51700; 51798; 99283-25

== ENCOUNTER 2019-11-14 23:19 | Emergency (ER) | payer MEDICARE, OTHER ==
[2019-11-14] MEDS ORDERED: Lidocaine 2% HCl 6 ML JEL.PF.APP ONE (23:35)
--- NOTE | 2019-11-14 23:40 | EDM.PDOC ---
ED HPI GENERAL MEDICAL PROBLEM - General Chief Complaint: Genitourinary Problem Time Seen by Provider: 11/14/19 23:20 Source of Information: Reports: Patient History Limitations: Reports: No Limitations - History of Present Illness INITIAL COMMENTS - FREE TEXT/NARRATIVE: Patient presented to the ED bcause of an obstructed ward. He was seen earlier and his ward was irrigated. Several hours after ashley home it's obstructed again. Lower abdominal pressure Pain Score (Numeric/FACES): 10 - Related Data Allergies Allergy/AdvReac Type Severity Reaction Status Date / Time No Known Allergies Allergy Verified 05/02/19 11:34 Home Meds: Home Meds Aspirin 325 mg PO DAILY 03/26/16 [History] Cholecalciferol (Vitamin D3) [Vitamin D3] 5,000 unit PO DAILY 03/26/16 [History] Omeprazole 40 mg PO QAM 03/26/16 [History] Acetaminophen/HYDROcodone [[place] 325-5 MG] 1 - 2 tab PO Q6H PRN 11/14/19 [History] Budesonide/Formoterol [Symbicort 160-4.5 MCG] 1 puff INH BID PRN 11/14/19 [History] Tiotropium [Spiriva] 1 puff INH DAILY PRN 11/14/19 [History] cephALEXin [Cephalexin] 500 mg BID 11/14/19 [History] Past Medical History HEENT History: Reports: Impaired Vision Cardiovascular History: Reports: SOB on Exertion Respiratory History: Reports: SOB, Other (See Below) Other Respiratory History: PNEUMONIA IN THE 90"S Gastrointestinal History: Reports: Other (See Below) Other Gastrointestinal History: SX CHRONIC EPIGASTRIC ET ABDOMINAL PAIN Other Musculoskeletal History: CYST REMOVED FROM LEFT OUTER KNEE - Infectious Disease History Infectious Disease History: Reports: Chicken Pox, Measles, Shingles - Past Surgical History HEENT Surgical History: Reports: Oral Surgery Cardiovascular Surgical History: Reports: None Respiratory Surgical History: Reports: None GI Surgical History: Reports: EGD Musculoskeletal Surgical History: Reports: Other (See Below) Social & Family History - Family History Family Medical History: Noncontributory - Caffeine Use Caffeine Use: Reports: Coffee - Living Situation & Occupation Occupation: Retired ED ROS GENERAL - Review of Systems Review Of Systems: See Below Constitutional: Reports: No Symptoms HEENT: Reports: No Symptoms Respiratory: Reports: No Symptoms Cardiovascular: Reports: No Symptoms Endocrine: Reports: No Symptoms GI/Abdominal: Reports: No Symptoms : Reports: No Symptoms Musculoskeletal: Reports: No Symptoms Skin: Reports: No Symptoms ED EXAM, RENAL/ - Physical Exam Exam: See Below Exam Limited By: No Limitations General Appearance: Alert, No Apparent Distress Ears: Normal External Exam, Normal Canal Nose: Normal Inspection, Normal Mucosa, No Blood Throat/Mouth: Normal Inspection, Normal Lips Head: Atraumatic, Normocephalic Neck: Normal Inspection, Supple, Non-Tender Respiratory/Chest: No Respiratory Distress, Lungs Clear, Normal Breath Sounds Cardiovascular: Normal Peripheral Pulses, Regular Rate, Rhythm, No Edema GI/Abdominal: Normal Bowel Sounds, Soft, Non-Tender, No Organomegaly (Male) Exam: Other (bladder is full with 500 ml of urine) Back Exam: Normal Inspection, Full Range of Motion Course - Vital Signs Text/Narrative:: bladder scan change ward Last Recorded V/S: Last Vital Signs Temp 37.0 C 11/14/19 23:19 Pulse 101 H 11/14/19 23:19 Resp 20 11/14/19 23:19 BP 99/42 L 11/14/19 23:19 Pulse Ox 98 11/14/19 23:19 - Orders/Labs/Meds Orders: Active Orders 24 hr Category Date Time Status Ward Catheter Insertion [Insert Urinary Catheter] [OM. Care 11/14/19 23:45 Ordered PC] Q24H Urinary Catheter Assessment [RC] QSHIFT Care 11/14/19 23:37 Active Meds: Medications Discontinued Medications Generic Name Dose Route Start Last Admin Trade Name Cinthya PRN Reason Stop Dose Admin Lidocaine HCl 6 ml 11/14/19 23:35 Glydo .XX 11/14/19 23:36 ONETIME ONE Departure - Departure Time of Disposition: 00:15 Disposition: Home, Self-Care 01 Condition: Good Clinical Impression: Obstructed Ward catheter - Discharge Information Instructions: Indwelling Urinary Catheter Care, Adult, [id number] Referrals: Terrence Mason MD [Primary Care Provider] - Forms: ED Department Discharge Additional Instructions: Please read discharge instructions on obstructed ward Increase oral fluids Follow up with your urologist as scheduled this week Sepsis Event Note (ED) - Evaluation Sepsis Screening Result: Possible Severe Sepsis Risk - Focused Exam Vital Signs: Vital Signs Temp Pulse Resp BP Pulse Ox 11/14/19 23:19 37.0 C 101 H 20 99/42 L 98 - My Orders Last 24 Hours: My Active Orders 11/14/19 23:37 Urinary Catheter Assessment [RC] QSHIFT 11/14/19 23:45 Ward Catheter Insertion [Insert Urinary Catheter] [OM.PC] Q24H - Assessment/Plan Last 24 Hours: My Active Orders 11/14/19 23:37 Urinary Catheter Assessment [RC] QSHIFT 11/14/19 23:45 Ward Catheter Insertion [Insert Urinary Catheter] [OM.PC] Q24H
[2019-11-15 03:17] VITALS: BP 146/74; PULSE 88
== END 2019-11-15 00:12 | disposition home or self-care (01) ==
LOC: FB.ED 23:19
DX: T83.091A Other mechanical complication of indwelling urethral catheter, initial encounter (principal); Z79.82 Long term (current) use of aspirin
CPT/HCPCS: 51702; 99283; A9270

== ENCOUNTER 2022-02-21 12:16 | Emergency (ER) | payer MEDICARE, OTHER ==
[2022-02-21 13:24] VITALS: BP 104/55; PULSE 88
== END 2022-02-21 13:20 | disposition home or self-care (01) ==
LOC: FB.ED 12:16
DX: R10.32 Left lower quadrant pain (principal); N32.1 Vesicointestinal fistula; N39.0 Urinary tract infection, site not specified; C18.8 Malignant neoplasm of overlapping sites of colon
CPT/HCPCS: 36415; 74177; 86140; 87086; 87088; 87186; Q9967